=== PATIENT | female | born 1970 | race Two or more races ===

== ENCOUNTER 2020-02-15 14:11 | Emergency (ER) | payer MEDICAID, OTHER ==
[~2020-02-15] VITALS: Ht 167.6 cm; Wt 81.6 kg
[2020-02-15 14:20] VITALS: BP 150/90
== END 2020-02-15 15:11 | disposition home or self-care (01) ==
LOC: ER 14:11
DX: S93.502A Unspecified sprain of left great toe, initial encounter (principal); X37.1XXA Tornado, initial encounter; Y93.89 Activity, other specified; Y92.89 Other specified places as the place of occurrence of the external cause; Y99.8 Other external cause status
CPT/HCPCS: 73630